=== PATIENT | female | born 1955 | race Caucasian/White ===

== ENCOUNTER 2024-11-13 19:32 | Inpatient (IN) | payer MEDICARE, OTHER, SELFPAY ==
--- NOTE | ~2024-11-13 | CT_ITS ---
CLINICAL HISTORY: ams CT head without contrast Comparison: None Findings: No intra-axial mass, midline shift, hydrocephalus, or acute hemorrhage. No significant atrophy-like change or white matter disease. The visualized paranasal sinuses and mastoid air cells are normal. Enophthalmos. Orbits otherwise unremarkable. No skull fracture. IMPRESSION: 1. No acute intracranial findings. This document has been electronically signed by: Prince Hernandez MD on 11/13/2024 23:16:11
[2024-11-13 19:36] VITALS: BP 116/82; PULSE 75; O2SAT 99
[2024-11-13 19:55] VITALS: BMI 20.1
--- NOTE | 2024-11-13 21:00 | PC.NURSE ---
Belongings secured by security and Ed, Constanza Beauchamp. $6636.59 cedillo double counted by this write and wildlife technicianConstanza beauchamp. cedillo, wallet and receipt placed in valuables envelope and sealed. Given to security- [id number] white copy in chart and provide pt with a copy to have on her person as well.
[2024-11-13 21:18] VITALS: BP 107/57; PULSE 60; RESP 16; TEMP 36.5; O2SAT 98
[2024-11-13 22:01] LABS: MANUAL DIFF FLAG NO
[2024-11-13 22:04] LABS: Basophils Percent Auto 0.6 % (0-2); Eosinophils Absolute Auto 0.1 X10*3/uL (0.0-0.4); Hematocrit 33.7 % (37.0-47.0); Hemoglobin 11.7 g/dl (12.0-16.0); Imm Gran Abs Auto 0.01 X10*3/uL (0.00-0.03); Imm Gran Pct Auto 0.2 % (0.0-0.4); Lymphocytes Absolute Auto 1.6 X10*3/uL (1.2-4.9); Lymphocytes Percent Auto 33.7 % (20-40); Mean Corpuscular HGB Conc 34.7 g/dl (31.0-35.0); Mean Corpuscular Hemoglobin 30.3 pg (27.0-33.0); Mean Corpuscular Volume 87.3 fL (80.0-98.0); Mean Platelet Volume 10.6 fL (9.4-12.3); Monocytes Absolute Auto 0.5 X10*3/uL (0.1-1.2); Monocytes Percent Auto 10.4 % (2-11); Neutrophils Absolute Auto 2.6 x10*3/uL (2.0-8.3); Neutrophils Percent Auto 54.1 % (45-73); Platelet Count 201 X10*3/uL (160-400); Red Blood Count 3.86 X10*6/uL (4.20-5.50); Red Cell Distribution Width 13.2 % (11.0-16.0); White Blood Count 4.8 X10*3/uL (4.8-10.8)
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
[2024-11-13 22:09] LABS: Appearance Urine Clear; Color Urine Yellow; Glucose Urine UA Negative (Negative); Leukocyte Esterase Urine Small (1+) (Negative); Nitrite Urine Negative (Negative); PH 5.5 (5.0-9.0); Specific Gravity - Urine 1.025 (1.005-1.025); UMIC TRIGGER UACC YES; Urine Blood Small (1+) (Negative); Urine Ketones Trace mg/dL (Negative); Urine Protein Trace mg/dL (Neg-Trace)
[2024-11-13 22:14] LABS: Bacteria Urine None Seen (None Seen); Hyaline Casts Urine 0-2 /LPF (0-2); Squamous Epithelial Cell Urine 0-2 /HPF (0-2); UACC Culture Trigger YES
[2024-11-13 22:21] LABS: Amphetamine Screen Urine Not Detected (Not Detect); Barbiturates, Urine Not Detected (Not Detect); Benzodiazepines Screen Urine Not Detected (Not Detect); Buprenorphine Scr Not Detected (Not Detect); Cannabinoid Screen Urine Not Detected (Not Detect); Cocaine Screen Urine Not Detected (Not Detect); Fentanyl, urine Not Detected (Not Detect); Methadone Screen, Urine Not Detected (Not Detect); Opiate Screen Urine Not Detected (Not Detect); Oxycodone Screen Urine Not Detected (Not Detect); Phencyclidine Screen Urine Not Detected (Not Detect)
[2024-11-13 22:27] LABS: Alanine Aminotransferase 19 U/L (0-31); Albumin Level 4.5 g/dL (3.5-5.0); Alkaline Phosphatase 72 U/L (39-117); Anion Gap 12 (12-20); Aspartate Amino Transferase 21 U/L (5-31); Bilirubin Total 0.3 mg/dL (0.0-1.0); Blood Urea Nitrogen 14 mg/dL (9-16); Calcium 9.5 mg/dL (8.4-10.2); Carbon Dioxide 27 mmol/L (22-29); Chloride 107 mmol/L (96-108); Estimated Glomerular Filt Rate > 60; Ethanol < 10 mg/dL; Glucose Random 80 mg/dL (60-115); Magnesium 2.3 mg/dL (1.6-2.6); Potassium 3.9 mmol/L (3.3-5.1); Sodium 142 mmol/L (135-145); Total Protein 7.1 g/dL (6.5-8.0)
[2024-11-13 22:32] LABS: Acetaminophen LAB < 3 mcg/mL (<30); Salicylate < 5.0 mg/dL (15-30)
[2024-11-13 22:48] LABS: Influenza A PCR NEGATIVE (Negative); Influenza B PCR NEGATIVE (Negative); Resp Syncy Virus RNA Qual PCR NEGATIVE (Negative); SARS COV2 PCR INHOUSE NEGATIVE (Negative)
--- NOTE | 2024-11-13 23:41 | PC.NURSE ---
Report given to DALLIN Tovar RN.
--- NOTE | 2024-11-14 | ECG_ITS ---
Test Reason : R.P QCT Blood Pressure : */* mmHG Vent. Rate : 52 BPM Atrial Rate : 52 BPM P-R Int : 138 ms QRS Dur : 82 ms QT Int : 458 ms P-R-T Axes : 33 53 58 degrees QTcB Int : 425 ms Sinus bradycardia Otherwise normal ECG No previous ECGs available Referred By: Frank Lau Electronically Signed By: ANNETTE NELSON
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
--- NOTE | 2024-11-14 05:11 | PC.NURSE ---
pt left room to go to bathroom with toothbrush in hand. pt then ran to exit door attempting to push door open. upon approaching pt, pt stated who are you to keep me here. i am a human being and i want to leave. this RN was able to provide verbal reassurance and redirect patient to surroundings. pt became more calm. redirected to her room, pt requested to use bathroom. upon return warm blanket given. pt declined food/drinks at this time.
[2024-11-14] MEDS: OLANZapine 10 MG VIAL IM (07:10)
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
--- NOTE | 2024-11-14 07:56 | PC.NURSE ---
Pt now resting in bed, offering no complaints, allowing vital signs
[2024-11-14 07:57] VITALS: BP 103/60; PULSE 59; RESP 16; TEMP 36.3; O2SAT 98
[2024-11-14 08:15] VITALS: BP 107/58; PULSE 81; RESP 18; TEMP 36.6; O2SAT 94
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
--- NOTE | 2024-11-14 14:39 | PHA.MEDREC ---
Pharmacy Consult ? Medication Reconciliation Pharmacy reviewed med rec done by nursing. Claims matched. I only updated timing (added 0600) for medication.
[2024-11-14 20:00] VITALS: BP 107/64; PULSE 55; RESP 16; TEMP 36.4; O2SAT 99
[2024-11-14 20:20] VITALS: BMI 15.8
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
[2024-11-15] MEDS: Levothyroxine Sodium 88 MCG TABLET PO (06:29)
[2024-11-15 07:00] VITALS: BMI 16.1
[2024-11-15 08:14] VITALS: BP 109/55; PULSE 59; TEMP 36.6; O2SAT 99
[2024-11-15 08:24] LABS: MANUAL DIFF FLAG NO
[2024-11-15 08:29] LABS: Basophils Percent Auto 0.9 % (0-2); Eosinophils Absolute Auto 0.1 X10*3/uL (0.0-0.4); Eosinophils Percent Auto 2.8 % (0-4); Hematocrit 38.4 % (37.0-47.0); Hemoglobin 12.8 g/dl (12.0-16.0); Imm Gran Abs Auto 0.01 X10*3/uL (0.00-0.03); Imm Gran Pct Auto 0.3 % (0.0-0.4); Lymphocytes Absolute Auto 1.2 X10*3/uL (1.2-4.9); Mean Corpuscular HGB Conc 33.3 g/dl (31.0-35.0); Mean Corpuscular Hemoglobin 29.8 pg (27.0-33.0); Mean Corpuscular Volume 89.3 fL (80.0-98.0); Mean Platelet Volume 11.2 fL (9.4-12.3); Monocytes Absolute Auto 0.4 X10*3/uL (0.1-1.2); Monocytes Percent Auto 13.2 % (2-11); Neutrophils Absolute Auto 1.5 x10*3/uL (2.0-8.3); Neutrophils Percent Auto 46.8 % (45-73); Platelet Count 219 X10*3/uL (160-400); Red Cell Distribution Width 13.2 % (11.0-16.0); White Blood Count 3.3 X10*3/uL (4.8-10.8)
[2024-11-15 08:39] LABS: Estimated Average Glucose 114 mg/dL; Hemoglobin A1C 128.3229 umol/L; Hemoglobin A1c % 5.6 % (<6.0); Total Hemoglobin (HGBA1C) 3390.9502 umol/L
[2024-11-15 08:58] LABS: Alanine Aminotransferase 20 U/L (0-31); Albumin Level 4.6 g/dL (3.5-5.0); Alkaline Phosphatase 73 U/L (39-117); Anion Gap 9 (12-20); Aspartate Amino Transferase 20 U/L (5-31); Bilirubin Total 0.4 mg/dL (0.0-1.0); Blood Urea Nitrogen 18 mg/dL (9-16); Calcium 10.1 mg/dL (8.4-10.2); Carbon Dioxide 32 mmol/L (22-29); Chloride 107 mmol/L (96-108); Cholesterol 254 mg/dL (<200); Creatinine Clr Calc Pharmacy 55.1; Estimated Glomerular Filt Rate > 60; Glucose Random 95 mg/dL (60-115); HDL Cholesterol 61 mg/dL (>40); LDL Cholesterol Calculated 177 mg/dL (<100); Potassium 4.3 mmol/L (3.3-5.1); Sodium 144 mmol/L (135-145); Total Protein 7.3 g/dL (6.5-8.0); Triglycerides 83 mg/dL (<150)
[2024-11-15 09:05] LABS: Free T4 (Free Thyroxine) 1.22 ng/dL (0.71-1.85); TSH reflex Free T4 3.23 uIU/mL (0.32-4.0); Thyroid Stimulating Hormone 3.23 uIU/mL (0.32-4.0)
[2024-11-15 09:12] LABS: Vitamin B12 870 pg/mL (200-900)
--- NOTE | 2024-11-15 09:21 | HO.PSYADMNOT ---
HPI Date of Service: 11/15/24 Chief Complaint: anxiety , found wondering Sources of Information: patient interviewed, chart reviewed and crisis/core team assessment reviewed HPI Subjective Notes: Marsh Warning and Section 12B Healthcare Proxy: No Guardianship: No Medical Problems Affecting Mental Status: No Narrative: 69-year-old female with history of hypothyroidism and GERD, presented [place] [facility] [place] on 11/15/2023 for paranoid delusions. She notes that yesterday, she went to the [employer] for shopping. While walking around, she noticed that a man was following and stalking her. She asked for security to report her stalker. [place] police arrived and told her she did not feel safe and was brought to the emergency room. She disclosed that in 1994, she was stalked by 2 men [place], one of whom was bully. They spread the wrong information at her workplace to make her life difficult. She informed the [place] police about those men and was advised to relocate. Therefore, she relocated to [place] eight years ago. She notes that one of the men and the other is likely still in [place]. She states that since 1994, she has been thinking about her stalkers, although not all the time. She did not make many friends as a result. She is mostly isolated. She has one friend who is her neighbor. She states that the man who was following and stalking her at the [employer], resembles her stalker from [place], who is no longer alive. She does not recall being followed or stalked since the , in [place]. She denies any history or current symptoms of anxiety, depression, hypomania, or dani. She denies any history or current SI/HI/SA/SIB/AH/VH. She denies drug or alcohol use. She adamantly refused medications for psychosis. Patient seen at 11:30 on 11/15/2024. Past Psychiatric History: Denies history of mental illness, psychotropic meds, psychiatrist, therapist Denies history of psychiatric admissions Denies history of SI/HI/SA/SIB/AH/VH Medical Evaluation Reviewed: Yes PMF Family History: Denies FH of psychiatric illness Social History: No children Four younger sisters but estranged Unemployed Masters degree in anthropology Substance History: Denies alcohol, drugs, or nicotine use. UTox is negative Trauma History: Denies Diagnostics Vital Signs (24Hr): Vital Signs - 24 hr 11/14/24 20:00 11/15/24 08:14 Temperature 97.6 F 97.8 F Pulse Rate 55 59 Respiratory Rate 16 Blood Pressure 107/64 109/55 L Pulse Oximetry 99 99 Oxygen Delivery Method Room Air Room Air BMI result Body Mass Index 15.8 Labs 11/15/24 08:03 11/15/24 08:03 Labs: Laboratory Results - last 48 hr 11/13/24 11/15/24 21:54 08:03 WBC 4.8 3.3 L RBC 3.86 L 4.30 Hgb 11.7 L 12.8 Hct 33.7 L 38.4 MCV 87.3 89.3 MCH 30.3 29.8 MCHC 34.7 33.3 RDW 13.2 13.2 Plt Count 201 219 MPV 10.6 11.2 Immature Gran % (Auto) 0.2 0.3 Neut % (Auto) 54.1 46.8 Lymph % (Auto) 33.7 36.0 Morrill % (Auto) 10.4 13.2 H Eos % (Auto) 1.0 2.8 Baso % (Auto) 0.6 0.9 Lymph # (Auto) 1.6 1.2 Morrill # (Auto) 0.5 0.4 Eos # (Auto) 0.1 0.1 Baso # (Auto) 0.0 0.0 Abs Immat Gran (auto) 0.01 0.01 Absolute Neuts (auto) 2.6 1.5 L Absolute Nucleated RBC 0.000 0.000 Nucleated RBC % (auto) 0.0 0.0 Sodium 142 144 Potassium 3.9 4.3 Chloride 107 107 Carbon Dioxide 27 32 H Anion Gap 12 9 L BUN 14 18 H Creatinine 0.76 0.76 Estim Creat Clear Calc 70.0 55.1 Estimated GFR > 60 > 60 Random Glucose 80 95 Estimat Average Glucose 114 Hemoglobin A1c % 5.6 Calcium 9.5 10.1 D Magnesium 2.3 Total Bilirubin 0.3 0.4 AST 21 20 ALT 19 20 Alkaline Phosphatase 72 73 Total Protein 7.1 7.3 Albumin 4.5 4.6 Triglycerides 83 Cholesterol 254 H LDL Cholesterol, Calc 177 H HDL Cholesterol 61 Vitamin B12 870 TSH 3.23 Free T4 1.22 Urine Color Yellow Urine Appearance Clear Urine pH 5.5 Ur Specific Parsons 1.025 Urine Protein Trace Urine Glucose (UA) Negative Urine Ketones Trace Urine Blood Small (1+) H Urine Nitrite Negative Ur Leukocyte Esterase Small (1+) H Urine RBC 11-20 H Urine WBC 6-10 H Ur Squamous Epith Cells 0-2 Urine Bacteria None Seen Hyaline Casts 0-2 Salicylates < 5.0 L Urine Opiates Screen Not Detected Ur Buprenorphine Scrn Not Detected Ur Oxycodone Screen Not Detected Urine Methadone Screen Not Detected Urine Fentanyl Screen Not Detected Acetaminophen < 3 Ur Barbiturates Screen Not Detected Ur Phencyclidine Scrn Not Detected Ur Amphetamines Screen Not Detected U Benzodiazepines Scrn Not Detected Urine Cocaine Screen Not Detected U Marijuana (THC) Screen Not Detected Ethyl Alcohol < 10 Influenza Type A (PCR) NEGATIVE Influenza Type B (PCR) NEGATIVE RSV RNA Qual (PCR) NEGATIVE SARS-CoV-2 RNA (RT-PCR) NEGATIVE Meds/Allergies Meds Home Medications ?Medication ?Instructions ?Recorded ?Confirmed ?Type levothyroxine 88 mcg tablet 88 mcg PO DAILY@0600 11/14/24 11/14/24 History Allergies Allergies Allergy/AdvReac Type Severity Reaction Status Date / Time Seasonal Allergies Allergy Mild Sneezing Verified 11/14/24 19:46 Mental Status Exam Mental Status Exam Narrative: Appearance: Casually dressed Behavior: Calm and cooperative throughout the interview. Eye contact is appropriate, and there are no signs of psychomotor agitation or retardation Speech: Normal volume and prosody Thought process logical and goal-directed Thought content: Future oriented no self-harming thoughts Mood: Calm Affect: Full, mood-congruent SI:denies HI:denies VH/AH:none Delusions: None Insight/judgment: Impaired insight and judgment Memory/cog: Alert, oriented x 4. grossly intact to conversational testing Assessment & Plan Assessment & Plan (1) Delusional disorder, persecutory type: Status: Acute Code(s): F22 - Delusional disorders Plan 69-year-old female with history of hypothyroidism and GERD, presented [place] [facility] [place] on 11/15/2023 for paranoid delusions. She notes that yesterday, she went to the [employer] for shopping. While walking around, she noticed that a man was following and stalking her. She asked for security to report her stalker. [place] police arrived and told her she did not feel safe and was brought to the emergency room. She disclosed that in 1994, she was stalked by 2 men [place], one of whom was bully. They spread the wrong information at her workplace to make her life difficult. She informed the [place] police about those men and was advised to relocate. Therefore, she relocated to [place] eight years ago. She notes that one of the men and the other is likely still in [place]. She states that since 1994, she has been thinking about her stalkers, although not all the time. She did not make many friends as a result. She is mostly isolated. She has one friend who is her neighbor. She states that the man who was following and stalking her at the [facility], resembles her stalker from [place], who is no longer alive. She does not recall being followed or stalked since the , in [place]. She denies any history or current symptoms of anxiety, depression, hypomania, or dani. She denies any history or current SI/HI/SA/SIB/AH/VH. She denies drug or alcohol use. She adamantly refused medications for psychosis. Formulation/Clinical reasoning: Delusional disorder, persecutory type: Patient believes she was followed/stalked by 2 men in 1994. She continues to have thoughts about being followed/stalked, although not always. Yesterday, she thought she was being followed by a man who resembles her former stalker who is . Otherwise, she is alert and oriented x4. She denies and history of psychiatric illness or taking psychotropic medications. She denies previous psychiatric admission. He denies any history or recent SI/HI/SA/SIB/AH/VH. She adamantly refused medications for psychosis. She is currently on section 12B which will on Tuesday. No imminent danger to self or others at this time. Encouraged to take her medications as prescribed/needed. Will continue to monitor, and may discharge on Tuesday if continues to be safe to self and others. Plan Admit to M5. CV 15 minutes check. Diagnostics as needed. Collateral contact. Continue remainder of regime. Encouraged full milieu. Discharge planning. Patient educated on: diagnosis, medication risk/benefits and therapeutic strategies Reason for continued inpatient stay Substantial Risk for: rapid decompensation Statement Statement: I have reviewed the history and physical and performed a pertinent examination on my patient. No changes have occurred unless specified. If the History and Physical was not performed prior to admission, the Hospitalist's service will be consulted for completing the admission physical. Time Spent With Patient Time: Total time managing care of this patient today ____ minutes.
[2024-11-15 09:54] LABS: Reflex LDLD? No
[2024-11-15 20:00] VITALS: BP 100/54; PULSE 62; RESP 16; TEMP 36.6; O2SAT 99
[2024-11-16] MEDS: Levothyroxine Sodium 88 MCG TABLET PO (07:35)
--- NOTE | 2024-11-16 11:47 | P.PNPSI_ITS ---
Subjective Subjective Date of Service: 11/16/24 Reason For Visit: anxiety , found wondering Subjective Notes: Section 12B Interim History: Reviewed precipitants to admit. No interest in medicine. Hx of extensive trauma with resulting fear of being locked in. Paranoia evident, but with rationale given reported hx. Pt open, met with tw for an extended time, non witholding,clear in her rationale for some of her fears, sx. Medication Compliance: Yes Side effects from medications: No Attending Groups: Intermittent Review of Systems Acute medical concerns: No Medical Review of Systems: unchanged Review of Systems Review of Systems Denies Mental Status Exam Mental Status Exam Patient Appearance: Appropriate Patient Orientation: Person, Place, Time and Situation Level of Consciousness: Alert Patient Behavior: Talkative and Good Eye Contact Mood Description: Calm and Fearful Affect Description: Calm and Fearful Patient Cognition Impaired: No Ability to Follow Directions: Good Speech Pattern: Spontaneous Speech Memory Description: Intact Hallucinations: None Delusions: Paranoid Ideation Thought Process: Distracted Thought Content: positive for Circumstantial, positive for Perseveration and positive for Suicidal Ideation (denies) Depressive Symptoms: Increased Anxiety Abnormal Motor Activity Signs and Symptoms: Restlessness Judgement: Fair Diagnostics Vital Signs (24Hr): Vital Signs - 24 hr 11/15/24 20:00 Temperature 97.8 F Pulse Rate 62 Respiratory Rate 16 Blood Pressure 100/54 L Pulse Oximetry 99 Oxygen Delivery Method Room Air BMI result Body Mass Index 16.1 Labs 11/15/24 08:03 11/15/24 08:03 Labs: Laboratory Results - last 48 hr 11/15/24 08:03 WBC 3.3 L RBC 4.30 Hgb 12.8 Hct 38.4 MCV 89.3 MCH 29.8 MCHC 33.3 RDW 13.2 Plt Count 219 MPV 11.2 Immature Gran % (Auto) 0.3 Neut % (Auto) 46.8 Lymph % (Auto) 36.0 Robeson % (Auto) 13.2 H Eos % (Auto) 2.8 Baso % (Auto) 0.9 Lymph # (Auto) 1.2 Robeson # (Auto) 0.4 Eos # (Auto) 0.1 Baso # (Auto) 0.0 Abs Immat Gran (auto) 0.01 Absolute Neuts (auto) 1.5 L Absolute Nucleated RBC 0.000 Nucleated RBC % (auto) 0.0 Sodium 144 Potassium 4.3 Chloride 107 Carbon Dioxide 32 H Anion Gap 9 L BUN 18 H Creatinine 0.76 Estim Creat Clear Calc 55.1 Estimated GFR > 60 Random Glucose 95 Estimat Average Glucose 114 Hemoglobin A1c % 5.6 Calcium 10.1 D Total Bilirubin 0.4 AST 20 ALT 20 Alkaline Phosphatase 73 Total Protein 7.3 Albumin 4.6 Triglycerides 83 Cholesterol 254 H LDL Cholesterol, Calc 177 H HDL Cholesterol 61 Vitamin B12 870 TSH 3.23 Free T4 1.22 Medications Medications Current Medications Acetaminophen (Acetaminophen 325 Mg Tablet) 650 mg PO Q6H PRN PRN Reason: Headache/Pain, Scale 1-10 Al Hydroxide/Mg Hydroxide (Magnesium Hydrox/Alum Hydrox 30 Ml Oral.Susp) 30 ml PO Q6H PRN PRN Reason: Heartburn/Nausea Levothyroxine Sodium (Levothyroxine Sodium 88 Mcg Tablet) 88 mcg PO DAILY@0600 [facility] Last Admin: 11/16/24 07:35 Dose: 88 mcg Magnesium Hydroxide (Milk Of Magnesia 30 Ml Oral.Susp) 30 ml PO DAILY PRN PRN Reason: Constipation Nicotine (Nicotine 21 Mg Patch.Td24) 21 mg TRANSDERMA DAILY PRN PRN Reason: smoking cessation Nicotine Polacrilex (Nicotine Polacrilex 2 Mg Gum) 2 mg BUCCAL Q2H PRN PRN Reason: Nicotine Cravings Olanzapine (Olanzapine 5 Mg Tablet) 5 mg PO TID PRN PRN Reason: agitation Trazodone HCl (Trazodone Hcl 50 Mg Tablet) 50 mg PO BEDTIME MRX1 PRN PRN Reason: Insomnia Allergies Allergies Allergy/AdvReac Type Severity Reaction Status Date / Time Seasonal Allergies Allergy Mild Sneezing Verified 11/14/24 19:46 Assessment & Plan Assessment & Plan (1) Delusional disorder, persecutory type: Status: Acute Code(s): F22 - Delusional disorders Plan 69-year-old female with history of hypothyroidism and GERD, presented to [facility] via ambulance on 11/15/2023 for paranoid delusions. She notes that yesterday, she went to the [employer] for shopping. While walking around, she noticed that a man was following and stalking her. She asked for security to report her stalker. [employer] police arrived and told her she did not feel safe and was brought to the emergency room. She disclosed that in 1994, she was stalked by 2 men [place], one of whom was bully. They spread the wrong information at her work place to make her life difficult. She informed the [place] police about those men and was advised to relocate. Therefore, she relocated to [place] eight years ago. She notes that one of the men and the other is likely still in [place]. She states that since 1994, she has been thinking about her stalkers, although not all the time. She did not make many friends as a result. She is mostly isolated. She has one friend who is her neighbor. She states that the man who was following and stalking her at the [employer] [facility], resembles her stalker from [place], who is no longer alive. She does not recall being followed or stalked since the , in [place]. She denies any history or current symptoms of anxiety, depression, hypomania, or dani. She denies any history or current SI/HI/SA/SIB/AH/VH. He denies drug or alcohol use. He adamantly refuses medications for psychosis. Formulation/Clinical reasoning: Delusional disorder, persecutory type: Patient believes she was followed/stalked by 2 men in 1994. She continues to have thoughts about being followed/stalked, although not always. Yesterday, she thought she was being followed by a man who resembles her former stalker who is . Otherwise, she is alert and oriented x4. She denies and history of psychiatric illness or taking psychotropic medications. She denies previous psychiatric admission. He denies any history or recent SI/HI/SA/SIB/AH/VH. She adamantly refused medications for psychosis. She is currently on section 12B which will on Tuesday. No imminent danger to self or others at this time. Encouraged to take her medications as prescribed/needed. Will continue to monitor, and may discharge on Tuesday if continues to be safe to self and others. Plan Admit to M5. CV 15 minutes check. Diagnostics as needed. Collateral contact. Continue remainder of regime. Encouraged full milieu. Discharge planning. 11/16: Declines meds [place] building Encourage milieu Reason for continued inpatient stay Substantial Risk for: rapid decompensation Time Spent With Patient Time: Total time managing care of this patient today ____ minutes.
[2024-11-16 19:56] VITALS: BP 102/60; PULSE 91; RESP 16; TEMP 37.2; O2SAT 99
[2024-11-17] MEDS: Levothyroxine Sodium 88 MCG TABLET PO (06:34)
[2024-11-17 08:00] VITALS: BP 103/59; PULSE 63; RESP 18; TEMP 36.4; O2SAT 100
--- NOTE | 2024-11-17 11:56 | HO.PSYCHPN ---
Subjective Subjective Date of Service: 11/17/24 Reason For Visit: anxiety , found wondering Subjective Notes: Section 12B Interim History: Patient has been refusing medication asking to leave. She is admitted on a section 12 B. patient describes long history of feeling that she had been stalked in [place]. 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 Patient describes no prior psychiatric treatment states she had been feeling someone perhaps was stalking her and needed reassurance that there was security at the [employer]. Patient states she lives in [facility] the [facility] enjoys hiking and biking Medication Compliance: Yes Side effects from medications: No Attending Groups: Intermittent Review of Systems Acute medical concerns: No Medical Review of Systems: unchanged Mental Status Exam Mental Status Exam Patient Appearance: Appropriate Patient Orientation: Person, Place, Time and Situation Level of Consciousness: Alert Patient Behavior: Talkative and Good Eye Contact Mood Description: Calm and Apprehensive Affect Description: Calm and Apprehensive Patient Cognition Impaired: No Ability to Follow Directions: Good Speech Pattern: Spontaneous Speech Memory Description: Intact Hallucinations: None Delusions: Paranoid Ideation Thought Process: Distracted Thought Content: positive for Circumstantial, positive for Perseveration and positive for Suicidal Ideation (denies) Depressive Symptoms: Increased Anxiety Abnormal Motor Activity Signs and Symptoms: Restlessness Judgement: Fair Diagnostics Vital Signs (24Hr): Vital Signs - 24 hr 11/16/24 19:56 11/17/24 08:00 Temperature 99.0 F 97.5 F Pulse Rate 91 63 Respiratory Rate 16 18 Blood Pressure 102/60 103/59 L Pulse Oximetry 99 100 Oxygen Delivery Method Room Air Room Air BMI result Body Mass Index 16.1 Labs 11/15/24 08:03 11/15/24 08:03 Medications Medications Current Medications Acetaminophen (Acetaminophen 325 Mg Tablet) 650 mg PO Q6H PRN PRN Reason: Headache/Pain, Scale 1-10 Al Hydroxide/Mg Hydroxide (Magnesium Hydrox/Alum Hydrox 30 Ml Oral.Susp) 30 ml PO Q6H PRN PRN Reason: Heartburn/Nausea Levothyroxine Sodium (Levothyroxine Sodium 88 Mcg Tablet) 88 mcg PO DAILY@0600 [facility] Last Admin: 11/17/24 06:34 Dose: 88 mcg Magnesium Hydroxide (Milk Of Magnesia 30 Ml Oral.Susp) 30 ml PO DAILY PRN PRN Reason: Constipation Nicotine (Nicotine 21 Mg Patch.Td24) 21 mg TRANSDERMA DAILY PRN PRN Reason: smoking cessation Nicotine Polacrilex (Nicotine Polacrilex 2 Mg Gum) 2 mg BUCCAL Q2H PRN PRN Reason: Nicotine Cravings Olanzapine (Olanzapine 5 Mg Tablet) 5 mg PO TID PRN PRN Reason: agitation Trazodone HCl (Trazodone Hcl 50 Mg Tablet) 50 mg PO BEDTIME MRX1 PRN PRN Reason: Insomnia Allergies Allergies Allergy/AdvReac Type Severity Reaction Status Date / Time Seasonal Allergies Allergy Mild Sneezing Verified 11/14/24 19:46 Assessment & Plan Assessment & Plan (1) Delusional disorder, persecutory type: Status: Acute Code(s): F22 - Delusional disorders Plan 69-year-old female with history of hypothyroidism and GERD, [place] [facility] [place] on 11/15/2023 for paranoid delusions. She notes that yesterday, she went to the [employer] for shopping. While walking around, she noticed that a man was following and stalking her. She asked for security to report her stalker. [place] police arrived and told her she did not feel safe and was brought to the emergency room. She disclosed that in 1994, she was stalked by 2 men [place], one of whom was bully. They spread the wrong information at her work place to make her life difficult. She informed the [place] police about those men and was advised to relocate. Therefore, she relocated to [place] eight years ago. She notes that one of the men and the other is likely still in [place]. She states that since 1994, she has been thinking about her stalkers, although not all the time. She did not make many friends as a result. She is mostly isolated. She has one friend who is her neighbor. She states that the man who was following and stalking her at the [employer], resembles her stalker from [place], who is no longer alive. She does not recall being followed or stalked since the , in [place]. She denies any history or current symptoms of anxiety, depression, hypomania, or dani. She denies any history or current SI/HI/SA/SIB/AH/VH. He denies drug or alcohol use. He adamantly refuses medications for psychosis. Formulation/Clinical reasoning: Delusional disorder, persecutory type: Patient believes she was followed/stalked by 2 men in 1994. She continues to have thoughts about being followed/stalked, although not always. Yesterday, she thought she was being followed by a man who resembles her former stalker who is . Otherwise, she is alert and oriented x4. She denies and history of psychiatric illness or taking psychotropic medications. She denies previous psychiatric admission. He denies any history or recent SI/HI/SA/SIB/AH/VH. She adamantly refused medications for psychosis. She is currently on section 12B which will on Tuesday. No imminent danger to self or others at this time. Encouraged to take her medications as prescribed/needed. Will continue to monitor, and may discharge on Tuesday if continues to be safe to self and others. 11/18/2024 Patient appears to have longstanding delusional disorder question if triggered from perhaps relevant in [place] years ago with PTSD unclear no auditory hallucinations. Evaluate safety patient on section 12 B Plan Admit to M5. CV 15 minutes check. Diagnostics as needed. Collateral contact. Continue remainder of regime. Encouraged full milieu. Discharge planning. 11/16: Declines meds [place] building Encourage milieu Reason for continued inpatient stay Substantial Risk for: inability to function and rapid decompensation Time Spent With Patient Time: Total time managing care of this patient today ____ minutes.
[2024-11-17 20:00] VITALS: BP 110/61; PULSE 76; TEMP 36.4; O2SAT 99
[2024-11-17] MEDS: Magnesium Hydrox/Alum Hydrox 30 ML ORAL.SUSP PO (20:34)
[2024-11-18] MEDS: Levothyroxine Sodium 88 MCG TABLET PO (07:28)
[2024-11-18 08:00] VITALS: BP 102/57; PULSE 55; RESP 20; TEMP 36.4; O2SAT 100
[2024-11-18 20:00] VITALS: BP 140/70; PULSE 67; RESP 16; TEMP 36.4; O2SAT 100
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
--- NOTE | 2024-11-19 04:02 | PC.NURSE ---
Patient was observed by [facility] as being awake at 0300. At 0350 patient was seen trying to tuck in her roommate's covers . Apparently patient told the [facility] she is worried someone is trying to get on the unit, or is on the unit and she is fearful for her safety and her roommate's safety. Patient reassured.
[2024-11-19] MEDS: Levothyroxine Sodium 88 MCG TABLET PO (07:25)
[2024-11-19 07:49] VITALS: BP 108/62; PULSE 74; RESP 18; TEMP 36.5; O2SAT 99
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
== END 2024-11-19 11:42 | disposition home or self-care (01) | DRG 885 ==
LOC: HO.ED 23:44 → HO.PM5 11-14 17:26
PROVIDERS: Physician Assistant Medical; Admitting Provider Psychiatry & Neurology Psychiatry; Emergency Provider Emergency Medicine; PCP Family Medicine; Visit Provider Psychiatry & Neurology Psychiatry
DX: F22 Delusional disorders (principal); E03.9 Hypothyroidism, unspecified; K21.9 Gastro-esophageal reflux disease without esophagitis; Z20.822 Contact with and (suspected) exposure to COVID-19; Z79.890 Hormone replacement therapy
CPT/HCPCS: 0241U; 36415; 70450; 80053; 80061; 80143; 80179; 80307; 81001; 81003; 82607; 83036; 83735; 84439; 84443; 85025; 87086; 93005; 99285; J2359; S9485

== ENCOUNTER → 2024-11-13 19:54 | Outpatient (BNV) | payer MEDICARE, MEDICAID, SELFPAY | PROVIDERS: Emergency Provider Emergency Medicine; PCP Family Medicine; Visit Provider Radiology Diagnostic Radiology | DX: R41.82 Altered mental status, unspecified (principal) | CPT/HCPCS: 70450 ==

== ENCOUNTER → 2024-11-14 16:39 | Outpatient (BNV) | payer MEDICARE, MEDICAID, SELFPAY | PROVIDERS: Admitting Provider Psychiatry & Neurology Psychiatry; Emergency Provider Emergency Medicine; PCP Family Medicine; Visit Provider Internal Medicine | DX: R00.1 Bradycardia, unspecified (principal) | CPT/HCPCS: 93010 ==

== ENCOUNTER → 2024-11-14 17:07 | Outpatient (BNV) | payer MEDICARE, MEDICAID, SELFPAY | PROVIDERS: Admitting Provider Psychiatry & Neurology Psychiatry; Emergency Provider Emergency Medicine; PCP Family Medicine; Visit Provider Psychiatry & Neurology Psychiatry | DX: F22 Delusional disorders (principal) | CPT/HCPCS: 99231 ==

== ENCOUNTER → 2024-11-14 17:07 | Outpatient (BNV) | payer MEDICARE, MEDICAID, SELFPAY | PROVIDERS: Admitting Provider Psychiatry & Neurology Psychiatry; Emergency Provider Emergency Medicine; PCP Family Medicine; Visit Provider Clinical Nurse Specialist Psychiatric/Mental Health, Adult | DX: F22 Delusional disorders (principal) | CPT/HCPCS: 90792; 99232; 99238 ==